=== PATIENT | female | born 1965 | race Caucasian/White ===

== ENCOUNTER → 2021-07-24 | Outpatient (CLI) | payer OTHER ==
--- NOTE | 2021-07-24 09:52 | RAD ---
EXAM: Lumbar spine, 3 views. HISTORY: Pain. COMPARISON: None. FINDINGS: 3 views of the lumbar spine are obtained. There is a transitional lumbosacral segment, cons idered a partially lumbarized S1 segment for this dictation. There is severe rotatory levoscoliosis o f the lumbar spine centered at L3. There is mild retrolisthesis of L3 on L4 and L4 and L5. There is d egenerative endplate remodeling with spurring primarily at L3-L4, this corresponds with the level of maximum scoliotic concavity. There is facet arthropathy primarily at the lower lumbar levels. IMPRESSION: 1. Severe rotatory scoliosis. 2. Multilevel degenerative change. 3. Transitional lumbosacral segment, a normal variant. Electronically signed by: Ester Raza MD (07/24/2021 9:50 AM) [id number]
== END ==
LOC: RAD 09:14
PROVIDERS: ATTEND Anesthesiology Pain Medicine
DX: Z02.71 Encounter for disability determination (principal); M47.816 Spondylosis without myelopathy or radiculopathy, lumbar region; M43.16 Spondylolisthesis, lumbar region; M41.86 Other forms of scoliosis, lumbar region; M46.06 Spinal enthesopathy, lumbar region; M48.8X6 Other specified spondylopathies, lumbar region; M43.8X7 Other specified deforming dorsopathies, lumbosacral region
CPT/HCPCS: 72100